=== PATIENT | female | born 1995 | race Caucasian/White ===

== ENCOUNTER 2018-02-19 20:26 | Emergency (ER) | payer BC ==
--- NOTE | 2018-02-19 20:33 | ER Report ---
History and Physical Time Seen By MD: 20:45 HPI/ROS CHIEF COMPLAINT: Abdominal pain HISTORY OF PRESENT ILLNESS: This is a 22-year-old female who presents to the emergency department for abdominal pain and concerns of a hemorrhoid. Patient states that over the last 3 days she's had some bright red streaking in her stools, patient states that her stools are like large daminá. Patient states that couple of hours ago she developed some abdominal pain and became concerned and decided to come in for further evaluation. Patient states now that the abdominal pain is subsiding, patient states that she is wondering if this is just "stomach pains" that she's had in the past. Patient is also concerned that she has ulcer. Patient did call her primary care doctor who suggested coming in to have an evaluation for hemorrhoids and constipation. Patient denies chest pain or shortness of breath, no aches, chills, nausea or vomiting. REVIEW OF SYSTEMS: Respiratory: No cough, no dyspnea. Cardiovascular: No chest pain, no palpitations. Gastrointestinal: As above. Musculoskeletal: No back pain. Allergies: Coded Allergies: No Known Drug Allergies (Unverified , 02/19/18) Home Meds Reported Medications Folic Acid (FOLIC ACID) 0.4 Mg Tablet, PO QDAY 02/19/18 Progesterone,Micronized (PROGESTERONE) 100 Mg Capsule, PO QPM, CAPSULE 02/19/18 Past Medical/Surgical History The patient has a past medical and surgical history of GERD, wears glasses, chronic postnasal drip, "bowel issues growing up" wisdom teeth extraction. Reviewed Nurses Notes: Yes Constitutional Vital Sign - Last 24 Hours 02/19/18 20:39 Temp 98.2 Pulse 99 Resp 16 B/P (MAP) 134/92 Pulse Ox 95 O2 Delivery Room Air Physical Exam General Appearance: The patient is alert, has no immediate need for airway protection and no current signs of toxicity. Eyes: Pupils equal and round no injection. Respiratory: Chest is non tender, lungs are clear to auscultation. Cardiac: regular rate and rhythm. Gastrointestinal: Abdomen is soft and non tender, no masses, bowel sounds normal. Musculoskeletal: Neck: Neck is supple and non tender. Extremities have full range of motion and are non tender. Skin: No rashes or lesions. DIFFERENTIAL DIAGNOSIS: After history and physical exam differential diagnosis was considered for abdominal pain including but not limited to appendicitis, cholecystitis, hemorrhoids, constipation, gastritis and urinary tract infection. Medical Decision Making Data Points Result Diagram: 02/19/18211002/19/182110 Laboratory Hematology Test 02/19/18 21:11 Red Blood Count 4.79 M/uL (4.17-5.56) Mean Corpuscular Volume 88.8 fL (80.0-96.0) Mean Corpuscular Hemoglobin 31.1 pg (26.0-33.0) Mean Corpuscular Hemoglobin Concent 35.1 g/dL (32.0-36.0) Red Cell Distribution Width 13.4 % (11.5-14.5) Mean Platelet Volume 7.6 fL (7.2-11.1) Neutrophils (%) (Auto) 74.6 % (39.4-72.5) Lymphocytes (%) (Auto) 18.0 % (17.6-49.6) Monocytes (%) (Auto) 6.2 % (4.1-12.4) Eosinophils (%) (Auto) 0.6 % (0.4-6.7) Basophils (%) (Auto) 0.6 % (0.3-1.4) Nucleated RBC Relative Count (auto) 0.0 /100WBC Neutrophils # (Auto) 7.5 K/uL (2.0-7.4) Lymphocytes # (Auto) 1.8 K/uL (1.3-3.6) Monocytes # (Auto) 0.6 K/uL (0.3-1.0) Eosinophils # (Auto) 0.1 K/uL (0.0-0.5) Basophils # (Auto) 0.1 K/uL (0.0-0.1) Nucleated RBC Absolute Count (auto) 0.00 K/uL Urine Color Yellow Urine Clarity Slightly-cloudy Urine pH 6.0 pH (4.8-9.5) Urine Specific [place] 1.018 Urine Protein Negative mg/dL (NEGATIVE) Urine Glucose (UA) Negative mg/dL (NEGATIVE) Urine Ketones Trace mg/dL (NEGATIVE) Urine Blood Large (NEGATIVE) Urine Nitrite Negative (NEGATIVE) Urine Bilirubin Negative (NEGATIVE) Urine Urobilinogen Negative mg/dL (0.2-1.9) Urine Leukocyte Esterase Negative (NEGATIVE) Urine RBC 68 /HPF (0-2/HPF) Urine WBC 2 /HPF (0-5/HPF) Urine Squamous Epithelial Cells Moderate /LPF (</=FEW) Urine Bacteria Few /HPF (NONE-FEW) Urine Mucus None /HPF (NONE-FEW) Urine HCG, Qualitative Negative (NEGATIVE) Sodium Level 140 mmol/L (137-145) Potassium Level 3.7 mmol/L (3.5-5.0) Chloride Level 99 mmol/L (98-107) Carbon Dioxide Level 22 mmol/L (22-31) Blood Urea Nitrogen 8 mg/dl (7-18) Creatinine 0.70 mg/dl (0.52-1.04) Glomerular Filtration Rate Calc > 60.0 Random Glucose 108 mg/dl (75-110) Calcium Level 10.4 mg/dl (8.4-10.2) Chemistry Test 02/19/18 21:11 White Blood Count 10.1 k/uL (4.5-11.0) Red Blood Count 4.79 M/uL (4.17-5.56) Hemoglobin 14.9 g/dL (12.0-16.0) Hematocrit 42.5 % (34.0-47.0) Mean Corpuscular Volume 88.8 fL (80.0-96.0) Mean Corpuscular Hemoglobin 31.1 pg (26.0-33.0) Mean Corpuscular Hemoglobin Concent 35.1 g/dL (32.0-36.0) Red Cell Distribution Width 13.4 % (11.5-14.5) Platelet Count 260 K/uL (150-450) Mean Platelet Volume 7.6 fL (7.2-11.1) Neutrophils (%) (Auto) 74.6 % (39.4-72.5) Lymphocytes (%) (Auto) 18.0 % (17.6-49.6) Monocytes (%) (Auto) 6.2 % (4.1-12.4) Eosinophils (%) (Auto) 0.6 % (0.4-6.7) Basophils (%) (Auto) 0.6 % (0.3-1.4) Nucleated RBC Relative Count (auto) 0.0 /100WBC Neutrophils # (Auto) 7.5 K/uL (2.0-7.4) Lymphocytes # (Auto) 1.8 K/uL (1.3-3.6) Monocytes # (Auto) 0.6 K/uL (0.3-1.0) Eosinophils # (Auto) 0.1 K/uL (0.0-0.5) Basophils # (Auto) 0.1 K/uL (0.0-0.1) Nucleated RBC Absolute Count (auto) 0.00 K/uL Urine Color Yellow Urine Clarity Slightly-cloudy Urine pH 6.0 pH (4.8-9.5) Urine Specific [place] 1.018 Urine Protein Negative mg/dL (NEGATIVE) Urine Glucose (UA) Negative mg/dL (NEGATIVE) Urine Ketones Trace mg/dL (NEGATIVE) Urine Blood Large (NEGATIVE) Urine Nitrite Negative (NEGATIVE) Urine Bilirubin Negative (NEGATIVE) Urine Urobilinogen Negative mg/dL (0.2-1.9) Urine Leukocyte Esterase Negative (NEGATIVE) Urine RBC 68 /HPF (0-2/HPF) Urine WBC 2 /HPF (0-5/HPF) Urine Squamous Epithelial Cells Moderate /LPF (</=FEW) Urine Bacteria Few /HPF (NONE-FEW) Urine Mucus None /HPF (NONE-FEW) Urine HCG, Qualitative Negative (NEGATIVE) Glomerular Filtration Rate Calc > 60.0 Calcium Level 10.4 mg/dl (8.4-10.2) Urinalysis Test 02/19/18 21:11 Urine Color Yellow Urine Clarity Slightly-cloudy Urine pH 6.0 pH (4.8-9.5) Urine Specific [place] 1.018 Urine Protein Negative mg/dL (NEGATIVE) Urine Glucose (UA) Negative mg/dL (NEGATIVE) Urine Ketones Trace mg/dL (NEGATIVE) Urine Blood Large (NEGATIVE) Urine Nitrite Negative (NEGATIVE) Urine Bilirubin Negative (NEGATIVE) Urine Urobilinogen Negative mg/dL (0.2-1.9) Urine Leukocyte Esterase Negative (NEGATIVE) Urine RBC 68 /HPF (0-2/HPF) Urine WBC 2 /HPF (0-5/HPF) Urine Squamous Epithelial Cells Moderate /LPF (</=FEW) Urine Bacteria Few /HPF (NONE-FEW) Urine Mucus None /HPF (NONE-FEW) Urine HCG, Qualitative Negative (NEGATIVE) EKG/Imaging Imaging Location: [facility] [place] Patient: Mitzy Rudd : 1995 Visit/Account:[id number] Date of Sevice: 02/19/2018 INDICATION: abdominal pain, ? constipation. DATE: 02/19/2018 10:23 PM. TECHNIQUE: ACUTE ABDOMEN SERIES 3 VIEW COMPARISON: None FINDINGS: The lungs are clear. Moderate stool and gas volume in the colon. Stool is most prominent in the right colon and rectosigmoid region. IMPRESSION: Moderate colonic stool and gas volume. Report Dictated By: Remington Christensen MD at 02/19/2018 10:23 PM Report E-Signed By: Remington Christensen MD at 02/19/2018 10:23 PM WSN:[id number] ED Course/Re-evaluation ED Course The patient was admitted to room. A history and physical were obtained. Different diagnoses was considered. A CBC, CMP and UA were obtained. Three-view abdominal x-ray showing moderate colonic stool and gas volume. CBC CMP unremarkable. UA unremarkable except there was large blood however discuss this with the patient and there is likely contamination from the stool. I once again offered a rectal exam the patient declined. I did to the patient that she did have some gas in the left abdomen that is likely causing her discomfort. Patient states that she has had gas while sitting in the room and is feeling better. I did review these results with the patient, patient states that she has been sitting and driving for several days and this could be congestive into her slow stool transit she also states that there has been a slight change in her diet in addition to the stress. I did tell patient that sent her home with some mag citrate she can take this and this will likely help with her difficult stool transit. I did instruct the patient to try a bowel regiment including MiraLAX for the next 30 days. I also told patient that I was difficult for me to tell if she had hemorrhoids, fissures or some local excoriation without inspection of the rectum patient's that she understands this. Patient had no other questions or concerns at this time and was discharged home. Patient was encouraged to return to the emergency department for any other concerns or worsening symptoms. 02/19/2018 9:25:32 pm the patient declined a rectal exam at this time. She elected to proceed with lab studies and x-ray. Decision to Disposition Date: February 19, 2018 Decision to Disposition Time: 22:48 Depart Departure Latest Vital Signs Vital Signs Date Time Temp Pulse Resp B/P (MAP) Pulse Ox O2 Delivery O2 Flow Rate FiO2 02/19/18 20:39 98.2 99 16 134/92 95 Room Air Impression: Primary Impression: Abdominal pain Additional Impressions: Blood in stool Hard stool Condition: Improved Disposition: HOME OR SELF-CARE Patient Instructions: Abdominal Pain (ED), Constipation (ED), Hemorrhoids (ED) Additional Instructions: Drink plenty of water. Get plenty of rest. Try to reduce your stress and increase your daily exercise to help with slow stool transit. I suspect your bright red stool is related to hard stools causing local irritation to the rectum or an internal hemorrhoid. Take the mag citrate when you get home. Try adding 1 cap full of MiraLax to your diet for the next 30 days. Return to the ED for any other concerns or worsening symptoms. Problem Qualifiers Primary Impression: Abdominal pain Abdominal location: left upper quadrant Qualified Codes: R10.12 - Left upper quadrant pain MANINDER DIAZ [employer] February 19, 2018 20:32
[2018-02-19] MEDS ORDERED: PROG100C PO (20:43)
[2018-02-19] MEDS ORDERED: FOLI0.4T56 PO (20:43)
[2018-02-19 21:20] LABS: PLATELET COUNT, AUTOMATED 260 K/uL (150-450)
--- NOTE | 2018-02-19 22:28 | RADIOLOGY IMAGING REPORT ---
FACILITY: [facility] PATIENT NAME: Mitzy Rudd : 1995 MR: [id number] V: [id number] EXAM DATE: ORDERING PHYSICIAN: MANINDER DIAZ TECHNOLOGIST: Location: [facility] Patient: Mitzy Rudd : 1995 Visit/Account:[id number] Date of Sevice: 02/19/2018 INDICATION: abdominal pain, ? constipation. DATE: 02/19/2018 10:23 PM. TECHNIQUE: ACUTE ABDOMEN SERIES 3 VIEW COMPARISON: None FINDINGS: The lungs are clear. Moderate stool and gas volume in the colon. Stool is most prominent in the right colon and rectosigmoid region. IMPRESSION: Moderate colonic stool and gas volume. Report Dictated By: Remington Christensen MD at 02/19/2018 10:23 PM Report E-Signed By: Remington Christensen MD at 02/19/2018 10:23 PM [id number]
[2018-02-19 23:00] VITALS: BP 104/83
[2018-02-19] MEDS ORDERED: MAGNESIUM CITRATE 300 ML BTL PO ONE (23:00)
== END 2018-02-19 23:20 | disposition home or self-care (01) ==
LOC: ER 20:47
DX: R10.12 Left upper quadrant pain (principal); K92.1 Melena
CPT/HCPCS: 36415; 74022; 81001; 81025; 82310; 82374; 82435; 82565; 82947; 84132; 84295; 84520; 85025; 99283